=== PATIENT | male | born 1955 | race Caucasian/White ===

== ENCOUNTER 2017-08-21 00:21 | Emergency (ER) | payer OTHER ==
[~2017-08-21] VITALS: Ht 180.3 cm; Wt 89.4 kg
[~2017-08-21 00:21] MED LIST: CYCL10 PO; HYDACE5; HYDACE5 PO; IBUP200; IBUP800 PO; RANI150 PO
[2017-08-21] MEDS ORDERED: LISI20 PO (00:41)
[2017-08-21 00:51] LABS: BASOPHILS ABSOLUTE AUTO 0.13 K/mm3 (0.00-0.23); BASOPHILS PERCENT AUTO 1 % (0-2); EOSINOPHILS ABSOLUTE AUTO 0.24 K/mm3 (0.00-0.68); EOSINOPHILS PERCENT AUTO 1 % (0-6); Hematocrit 45.3 % (37.0-53.0); Hemoglobin 15.4 g/dL (13.5-17.5); IMMATURE GRAN ABSOLUTE AUTO 0.08 K/mm3 (0.00-0.10); IMMATURE GRAN PERCENT AUTO 0 % (0-1); LYMPHOCYTES ABSOLUTE AUTO 2.93 K/mm3 (0.84-5.20); LYMPHOCYTES PERCENT AUTO 16 % (21-46); MONOCYTES ABSOLUTE AUTO 1.28 K/mm3 (0.16-1.47); MONOCYTES PERCENT AUTO 7 % (4-13); Mean Corpuscular HGB 30.3 pg (26.0-34.0); Mean Corpuscular Volume 89 fL (80-100); Mean Platelet Volume 9.9 fL (9.1-12.4); NEUTROPHILS ABSOLUTE AUTO 13.25 K/mm3 (1.96-9.15); NEUTROPHILS PERCENT AUTO 74 % (41-73); Platelet Count 276 K/mm3 (150-400); RDW Coefficient Variation 13.5 % (11.7-14.2); RDW Standard Deviation 44.4 fL (35.1-46.3); Red Blood Cell Count 5.09 M/mm3 (4.30-5.90); White Blood Cell Count 17.91 K/mm3 (4.00-11.30)
[2017-08-21 01:03] LABS: Alanine Aminotransfer (ALT/SGP 37 U/L (12-78); Albumin, Blood 4.1 g/dL (3.4-5.0); Albumin/Globulin Ratio 1.2 (0.8-1.8); Alk Phos 97 U/L (50-136); Anion Gap 8 mmol/L (6-16); Aspartate Aminotrans (AST/SGOT 23 U/L (12-37); Bilirubin, Total 0.5 mg/dL (0.1-1.0); Blood Urea Nitrogen 14 mg/dL (8-24); Bun/Creatinine Ratio 15.2 (12.0-20.0); CO2, Blood 26 mmol/L (21-32); Calcium, Blood 9.2 mg/dL (8.5-10.1); Chloride, Blood 107 mmol/L (98-108); Creatinine, Blood 0.92 mg/dL (0.60-1.20); Globulin, Blood 3.3 g/dL (2.2-4.0); Glomerular Filtration Rate >60 (60-); Glucose, Blood 115 mg/dL (70-99); Potassium, Blood 3.7 mmol/L (3.5-5.5); Sodium, Blood 141 mmol/L (136-145); Total Protein, Blood 7.4 g/dL (6.4-8.2)
[2017-08-21 01:04] LABS: Source, Urine Clean Catch
[2017-08-21 01:09] LABS: Bilirubin, Urine Neg (Neg); Blood, Urine 5+ (Neg); Glucose Qualitative, Urine Neg (Neg); Ketones, Urine Neg (Neg); Leukocyte Esterase, Urine Neg (Neg); Nitrite, Urine Neg (Neg); Protein, Urine Neg (Neg); Urobilinogen, Urine NORM (Normal)
[2017-08-21 01:14] LABS: Appearance, Urine Clear (Clear); Color, Urine Yellow (P-Yellow)
[2017-08-21 01:15] LABS: White Blood Cells, Urine Not Seen /hpf (0-5)
[2017-08-21 01:16] LABS: Bacteria Not Seen /hpf; Mucus Light (0-Heavy); Red Blood Cells, Urine 50-100 /hpf (0-2); Squamous Epithelial Cells Not Seen /hpf (Few)
[2017-08-21] MEDS ORDERED: Flomax0.4 MG PO (03:22)
[2017-08-21] MEDS ORDERED: IBUP600 PO (03:22)
[2017-08-21] MEDS ORDERED: Norco 5-325 Ta1 EACH PO (03:22)
[2017-08-21] MEDS ORDERED: Zofran Odt4 MG PO (03:22)
== END 2017-08-21 03:43 | disposition home or self-care (01) ==
LOC: ER 00:21
PROVIDERS: Emergency Medicine
DX: N13.2 Hydronephrosis with renal and ureteral calculous obstruction (principal); Z79.899 Other long term (current) drug therapy; I10 Essential (primary) hypertension; F17.210 Nicotine dependence, cigarettes, uncomplicated
CPT/HCPCS: 74176; 80053; 81001; 83690; 85025; 93005; 93010; 96361; 96374; 96375; 99284; J1885; J2405; J3010; J7030

== ENCOUNTER 2018-07-16 06:50 | Day surgery (SDC) | payer OTHER, MEDICARE ==
[~2018-07-16] VITALS: Ht 180.3 cm; Wt 95.3 kg
[~2018-07-16 06:50] MED LIST changes: +Flomax0.4 MG PO; +IBUP600 PO; +LISI20 PO; +Norco 5-325 Ta1 EACH PO; +Ultram50 MG PO; +Zofran Odt4 MG PO
--- NOTE | 2018-07-16 07:52 | NUR ---
PATIENT PERMISSION PATIENT GAVE PERMISSION FOR ME TO CARE FOR HIM TODAY 07/16/18
--- NOTE | 2018-07-16 08:15 | NUR ---
STUDENT NURSE ASSISTING IN CARE. AGREE WITH HER CHARTING AND CARE.
--- NOTE | 2018-07-16 08:16 | NUR ---
History, Chart, Medications and Allergies reviewed before start of procedure.Patient confirms NPO status and agrees with scheduled surgery. Patient reports completing Chlorhexadine shower X2 prior to admission to hospital.Surgical site prepped with 2% Chlorhexidine cloth wipe.PATIENT STATES CHRONIC PAIN 5/10 TO BACK
--- NOTE | 2018-07-16 09:37 | NUR ---
IV OUT,2X2 COBAN TO RT.FORE CATH INTACT
--- NOTE | 2018-07-16 10:46 | NUR ---
Patient up to Ambulate independently. Gait steady. Discharge instructions reviewed with patient. Patient verbalizes understanding. Copy given to patient to take home. Patient States Post-Procedure ride home has been arranged. Discharged via wheelchair to private car for ride home.
== END 2018-07-16 23:18 | disposition home or self-care (01) ==
LOC: ORSCMMR 06:50 → ORD 07:30 → ORSCMMR 08:00 → ORD 08:15 → ORSCMMR 23:18
PROVIDERS: Surgery
PROC: BF031ZZ Plain Radiography of Gallbladder and Bile Ducts using Low Osmolar Contrast (ICD-10-PCS; principal; 2018-07-16 08:00)
PROC: 0FT44ZZ Resection of Gallbladder, Percutaneous Endoscopic Approach (ICD-10-PCS; principal; 2018-07-16 08:00)
DX: K80.11 Calculus of gallbladder with chronic cholecystitis with obstruction (principal); K82.8 Other specified diseases of gallbladder; J44.9 Chronic obstructive pulmonary disease, unspecified; I10 Essential (primary) hypertension; F17.210 Nicotine dependence, cigarettes, uncomplicated; Z79.899 Other long term (current) drug therapy
CPT/HCPCS: 74300; 88304; C1729; J0690; J1100; J1885; J2405; J2704; J3010; J7030; J7120

== ENCOUNTER 2019-02-22 23:42 | Emergency (ER) | payer MEDICARE ==
[~2019-02-22] VITALS: Ht 180.3 cm; Wt 90.3 kg
[2019-02-23 00:19] LABS: BASOPHILS ABSOLUTE AUTO 0.16 K/mm3 (0.00-0.23); BASOPHILS PERCENT AUTO 1 % (0-2); EOSINOPHILS ABSOLUTE AUTO 0.19 K/mm3 (0.00-0.68); EOSINOPHILS PERCENT AUTO 1 % (0-6); Hematocrit 46.9 % (37.0-53.0); IMMATURE GRAN ABSOLUTE AUTO 0.07 K/mm3 (0.00-0.10); IMMATURE GRAN PERCENT AUTO 0 % (0-1); LYMPHOCYTES PERCENT AUTO 11 % (21-46); MONOCYTES ABSOLUTE AUTO 1.19 K/mm3 (0.16-1.47); MONOCYTES PERCENT AUTO 7 % (4-13); Mean Corpuscular HGB 29.2 pg (26.0-34.0); Mean Corpuscular HGB Conc 34.1 g/dL (31.5-36.5); Mean Corpuscular Volume 86 fL (80-100); Mean Platelet Volume 9.8 fL (9.1-12.4); NEUTROPHILS ABSOLUTE AUTO 13.06 K/mm3 (1.96-9.15); NEUTROPHILS PERCENT AUTO 79 % (41-73); Platelet Count 271 K/mm3 (150-400); RDW Coefficient Variation 12.9 % (11.7-14.2); RDW Standard Deviation 40.2 fL (35.1-46.3); Red Blood Cell Count 5.48 M/mm3 (4.30-5.90); White Blood Cell Count 16.47 K/mm3 (4.00-11.30)
[2019-02-23 00:34] LABS: Magnesium, Blood 2.1 mg/dL (1.6-2.4)
[2019-02-23 00:38] LABS: Alanine Aminotransfer (ALT/SGP 28 U/L (12-78); Albumin, Blood 4.2 g/dL (3.4-5.0); Albumin/Globulin Ratio 1.2 (0.8-1.8); Alk Phos 147 U/L (50-136); Anion Gap 6 mmol/L (6-16); Aspartate Aminotrans (AST/SGOT 23 U/L (12-37); Bilirubin, Total 0.4 mg/dL (0.1-1.0); Blood Urea Nitrogen 10 mg/dL (8-24); Bun/Creatinine Ratio 10.8 (12.0-20.0); CO2, Blood 26 mmol/L (21-32); Chloride, Blood 105 mmol/L (98-108); Creatinine, Blood 0.92 mg/dL (0.60-1.20); Globulin, Blood 3.4 g/dL (2.2-4.0); Glomerular Filtration Rate >60 (60-); Glucose, Blood 189 mg/dL (70-99); Potassium, Blood 3.7 mmol/L (3.5-5.5); Sodium, Blood 137 mmol/L (136-145); Total Protein, Blood 7.6 g/dL (6.4-8.2)
[2019-02-23 01:30] LABS: Source, Urine Clean Catch
[2019-02-23 01:32] LABS: Bilirubin, Urine Neg (Neg); Blood, Urine 2+ (Neg); Glucose Qualitative, Urine 2+ (Neg); Ketones, Urine Neg (Neg); Leukocyte Esterase, Urine Neg (Neg); Nitrite, Urine Neg (Neg); Protein, Urine Neg (Neg); Urobilinogen, Urine NORM (Normal)
[2019-02-23 01:36] LABS: Appearance, Urine Clear (Clear); Color, Urine Yellow (P-Yellow)
[2019-02-23 01:38] LABS: Bacteria Not Seen /hpf; Squamous Epithelial Cells Rare /hpf (Few); White Blood Cells, Urine Not Seen /hpf (0-5); Yeast/Fungi Urine Not Seen /hpf
[2019-02-23] MEDS ORDERED: Percocet 5-3251 EACH PO (02:23)
== END 2019-02-23 02:36 | disposition home or self-care (01) ==
LOC: ER 23:42
PROVIDERS: Emergency Medicine; Physician Assistant
DX: N13.2 Hydronephrosis with renal and ureteral calculous obstruction (principal); I10 Essential (primary) hypertension; F17.210 Nicotine dependence, cigarettes, uncomplicated; Z87.442 Personal history of urinary calculi
CPT/HCPCS: 36415; 74176; 80053; 81001; 83605; 83690; 83735; 84145; 85025; 96361; 96374; 96375; 99284; J1170; J1885; J7030

== ENCOUNTER 2020-08-30 19:57 | Inpatient (IN) | payer OTHER, MEDICARE ==
[~2020-08-30] VITALS: Ht 180.3 cm; Wt 98.2 kg
[~2020-08-30 19:57] MED LIST changes: +Percocet 5-3251 EACH PO
[2020-08-30 20:17] LABS: BASOPHILS ABSOLUTE AUTO 0.14 K/mm3 (0.00-0.23); BASOPHILS PERCENT AUTO 1 % (0-2); EOSINOPHILS ABSOLUTE AUTO 0.22 K/mm3 (0.00-0.68); EOSINOPHILS PERCENT AUTO 1 % (0-6); Hematocrit 44.9 % (37.0-53.0); Hemoglobin 15.5 g/dL (13.5-17.5); IMMATURE GRAN ABSOLUTE AUTO 0.16 K/mm3 (0.00-0.10); IMMATURE GRAN PERCENT AUTO 1 % (0-1); LYMPHOCYTES ABSOLUTE AUTO 5.03 K/mm3 (0.84-5.20); LYMPHOCYTES PERCENT AUTO 29 % (21-46); MONOCYTES PERCENT AUTO 8 % (4-13); Mean Corpuscular HGB 29.4 pg (26.0-34.0); Mean Corpuscular HGB Conc 34.5 g/dL (31.5-36.5); Mean Corpuscular Volume 85 fL (80-100); Mean Platelet Volume 10.5 fL (9.1-12.4); NEUTROPHILS ABSOLUTE AUTO 10.51 K/mm3 (1.96-9.15); NEUTROPHILS PERCENT AUTO 60 % (41-73); Platelet Count 263 K/mm3 (150-400); RDW Coefficient Variation 13.4 % (11.7-14.2); RDW Standard Deviation 41.6 fL (35.1-46.3); Red Blood Cell Count 5.27 M/mm3 (4.30-5.90); White Blood Cell Count 17.46 K/mm3 (4.00-11.30)
[2020-08-30 20:37] LABS: Alanine Aminotransfer (ALT/SGP 36 U/L (12-78); Albumin, Blood 4.1 g/dL (3.4-5.0); Albumin/Globulin Ratio 1.3 (0.8-1.8); Alk Phos 120 U/L (50-136); Anion Gap 7 mmol/L (6-16); Aspartate Aminotrans (AST/SGOT 28 U/L (12-37); Bilirubin, Total 0.5 mg/dL (0.1-1.0); Blood Urea Nitrogen 15 mg/dL (8-24); CO2, Blood 24 mmol/L (21-32); Calcium, Blood 8.9 mg/dL (8.5-10.1); Chloride, Blood 109 mmol/L (98-108); Creatinine, Blood 0.94 mg/dL (0.60-1.20); Globulin, Blood 3.1 g/dL (2.2-4.0); Glomerular Filtration Rate >60 (60-); Glucose, Blood 159 mg/dL (70-99); Potassium, Blood 3.3 mmol/L (3.5-5.5); Sodium, Blood 140 mmol/L (136-145); Total Protein, Blood 7.2 g/dL (6.4-8.2)
[2020-08-31] MEDS ORDERED: FLOMAX0.4 MG PO (01:11)
[2020-08-31 01:41] LABS: SARS-Cov-2 (COVID-19) PCR, MMC NEGATIVE (NEGATIVE)
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
--- NOTE | 2020-08-31 17:36 | NUR ---
SUMMARY: NO ACUTE CHANGE TODAY. PT DROWSY, AWAKENS TO VOICE. ORIENTED. HTN NOTED AND DR. JOHNSON/ LAK[place] MADE AWARE. SEE NEW ORDER, VS OTHERWISE STABLE. PT HAS SLEPT MAJORITY OF THE DAY, USED BATHROOM X2 WITH SBA. PAINFUL WITH MOVEMENT, MEDICATED PER EMAR. L ELBOW LACERATION WRAPPED IN GAUZE AND RIDDHI WNL, ELEVATED ON PILLOWS. PT SWELLING AT L EYE SEEMS TO HAVE IMPROVED TONIGHT AND PT ABLE TO OPEN EYE. PLAN IS FOR I & D OF L ELBOW TOMORROW, NPO AT OO. WILL REPORT TO NOC JEB.
--- NOTE | 2020-09-01 03:57 | NUR ---
PATIENT DROWSY, ORIENTED X4. BP SYSTOLIC AT 184, PRN HYDRALAZINE GIVEN W/ GOOD EFFECT. OTHER VSS. PAIN MANAGED WELL W/ IV DILAUDID. UP TO TOILET W/ SBA. NPO. LR INFUSING. SLEEPING B/W CARE. USING CALL LIGHT TO MAKE NEEDS KNOWN.
[2020-09-01 04:50] LABS: BASOPHILS PERCENT AUTO 1 % (0-2); EOSINOPHILS ABSOLUTE AUTO 0.11 K/mm3 (0.00-0.68); EOSINOPHILS PERCENT AUTO 1 % (0-6); Hematocrit 43.7 % (37.0-53.0); Hemoglobin 14.7 g/dL (13.5-17.5); IMMATURE GRAN ABSOLUTE AUTO 0.09 K/mm3 (0.00-0.10); IMMATURE GRAN PERCENT AUTO 1 % (0-1); LYMPHOCYTES ABSOLUTE AUTO 2.45 K/mm3 (0.84-5.20); LYMPHOCYTES PERCENT AUTO 15 % (21-46); MONOCYTES ABSOLUTE AUTO 1.78 K/mm3 (0.16-1.47); MONOCYTES PERCENT AUTO 11 % (4-13); Mean Corpuscular HGB 28.9 pg (26.0-34.0); Mean Corpuscular HGB Conc 33.6 g/dL (31.5-36.5); Mean Corpuscular Volume 86 fL (80-100); NEUTROPHILS ABSOLUTE AUTO 11.67 K/mm3 (1.96-9.15); NEUTROPHILS PERCENT AUTO 72 % (41-73); Platelet Count 223 K/mm3 (150-400); RDW Coefficient Variation 13.5 % (11.7-14.2); RDW Standard Deviation 42.3 fL (35.1-46.3); Red Blood Cell Count 5.09 M/mm3 (4.30-5.90)
[2020-09-01 05:05] LABS: Albumin, Blood 3.8 g/dL (3.4-5.0); Anion Gap 8 mmol/L (6-16); Blood Urea Nitrogen 15 mg/dL (8-24); Bun/Creatinine Ratio 20.2 (12.0-20.0); CO2, Blood 24 mmol/L (21-32); Calcium, Blood 8.5 mg/dL (8.5-10.1); Chloride, Blood 103 mmol/L (98-108); Creatinine, Blood 0.74 mg/dL (0.60-1.20); Glomerular Filtration Rate >60 (60-); Glucose, Blood 154 mg/dL (70-99); Phosphorus, Blood 2.2 mg/dL (2.5-4.9); Potassium, Blood 3.7 mmol/L (3.5-5.5); Sodium, Blood 135 mmol/L (136-145)
--- NOTE | 2020-09-01 14:17 | NUR ---
History, Chart, Medications and Allergies reviewed before start of procedure.Patient confirms NPO status and agrees with scheduled surgery. Pre-Op teaching done. Pt verbalizes understanding.
--- NOTE | 2020-09-01 14:49 | NUR ---
PT TO OR AT ABOUT 1420, PT AWARE
--- NOTE | 2020-09-01 18:39 | NUR ---
POST OP: REPORT RECEIVED FROM SHEET METAL WORKER MAINTENANCE KIM. PT TO UNIT AT ABOUT 1800. UPON ASSESSMENT PT IS DROWSY, AWAKENS TO VOICE AND IS A LITTLE FORGETFUL, PT NEEDED A REMINDER OF WHERE HE WAS. BED ALARM ON. SURGICAL SITE WNL, PT DENIES N/T TO L ARM, ARM IS IN SLING AND WRAPED WITH RIDDHI. VSS, SP02 94% ON 2L, CONT. BI OX IN PLACE, LUNGS ARE CLEAR AND DIM AT BASES. PT DENIES N/V AND ABLE TO RAMONA PO. PT REPORTS 4/10 PAIN THAT IS TOLERABLE AT THIS TIME. WILL CTM AND REPORT TO NOC JEB.
--- NOTE | 2020-09-01 21:08 | NUR ---
PAIN MEDS: PT REQUESTING TO AVOID NORCO. PT REPORTS WAS TAKING NORCO DAILY FOR THE PAST 8 YEARS AND RECENTLY STOPPED TAKING IT. PT REQ TO HAVE IV DILAUDID WHILE IN HOSPITAL. PT EDUCATED THAT DILAUDID IS ALSO A NARCOTIC, ALSO DISCUSSED PAIN MGMT UPON DC. PT VERBALIZED UNDERSTANDING, STATES "I KNOW, FOR ME IT'S A MIND OVER MATTER THING, I KNOW I WON'T BE TAKING THE DILAUDID AT HOME" "I WILL TRY TO TAKE THE NORCO ONLY 1X A DAY WHEN I'M HOME; I DON'T WANT TO GET STARTED BACK ON THAT STUFF" PT REQ IV TORADOL AND TO LIMIT NARCOTICS IF POSSIBLE W/NORCO BEING HIS LAST RESORT WHILE HERE.
--- NOTE | 2020-09-02 04:23 | NUR ---
PT ALERT AND ORIENTED. UP TO RESTROOM WITH ASSISTANCE. NO BM. COUGHING WITH PILLOW FOR GUARDING. MEDICATED WITH DILAUDID AND TORADOL, TOLERATES WELL. L HAND SWELLING, ABLE TO MOVE FINGERS. PULSE IS STRONG. ON 1L O2. FLUIDS INFUSING.
--- NOTE | 2020-09-02 06:14 | NUR ---
POD 1 S/P I&D OF LEFT ELBOW. PT VSS, O2 TITRATED DOWN TO 1L THIS AM. LUNGS DIM, PT HAS OCC LOOSE COUGH, IS BRACING RIBS W/COUGH; I/S USE REINFORCED. LUE DRESSING CDI; SPLINT IN PLACE, ARM ELEVATED IN BED. NO SIG CHANGE TO SWELLING, PULSE AND CAP REFILL WNL, PT DENIES N/T. PT REQ TO AVOID NORCO R/T HX OF NAROTIC USE (SEE PREV NOTE), PAIN MGD W/TORADOL AND DILAUDID W/REP RELIEF. PT UP OOB W/SBA, RAMONA WELL. PT USING CALL LIGHT FOR ASSISTANCE, CONT OX IN PLACE.
--- NOTE | 2020-09-02 07:52 | NUR ---
dr thomas by to see pt dressing changed ok to discharge home
--- NOTE | 2020-09-02 09:57 | NUR ---
rx called to hold[facility] c[facility]
--- NOTE | 2020-09-02 10:14 | NUR ---
at bedside awaiting dr pereyra for discharge pt sitting up on dege of the bed
[2020-09-02] MEDS ORDERED: CEPH500 PO (10:15)
[2020-09-02] MEDS ORDERED: HYDR1TAB94 PO (10:27)
[2020-09-02] MEDS ORDERED: SULTRIDS PO (10:28)
== END 2020-09-02 11:00 | disposition home or self-care (01) | DRG 511 ==
LOC: ER 19:57 → SURS 19:58 → ER 19:58 → SURS 19:58
PROVIDERS: Emergency Medicine; Orthopaedic Surgery; Surgery; ADMIT Surgery
PROC: 0CQ1XZZ Repair Lower Lip, External Approach (ICD-10-PCS; 2020-08-30)
PROC: 0CQ1XZZ Repair Lower Lip, External Approach (ICD-10-PCS; 2020-08-30)
PROC: 09QKXZZ Repair Nasal Mucosa and Soft Tissue, External Approach (ICD-10-PCS; 2020-08-30)
PROC: 0HQEXZZ Repair Left Lower Arm Skin, External Approach (ICD-10-PCS; 2020-08-30)
PROC: 0PBL0ZZ Excision of Left Ulna, Open Approach (ICD-10-PCS; principal; 2020-09-01 14:45)
DX: S52.022B Displaced fracture of olecranon process without intraarticular extension of left ulna, initial encounter for open fracture type I or II (principal); S22.41XA Multiple fractures of ribs, right side, initial encounter for closed fracture; I10 Essential (primary) hypertension; F17.210 Nicotine dependence, cigarettes, uncomplicated; S01.21XA Laceration without foreign body of nose, initial encounter; S01.412A Laceration without foreign body of left cheek and temporomandibular area, initial encounter; Z20.822 Contact with and (suspected) exposure to COVID-19; G89.29 Other chronic pain; M54.9 Dorsalgia, unspecified; E87.6 Hypokalemia; F43.0 Acute stress reaction; S05.02XA Injury of conjunctiva and corneal abrasion without foreign body, left eye, initial encounter; S01.511A Laceration without foreign body of lip, initial encounter; S01.81XA Laceration without foreign body of other part of head, initial encounter; Z87.442 Personal history of urinary calculi; Z90.49 Acquired absence of other specified parts of digestive tract; V86.59XA Driver of other special all-terrain or other off-road motor vehicle injured in nontraffic accident, initial encounter; Z98.890 Other specified postprocedural states; Y92.410 Unspecified street and highway as the place of occurrence of the external cause
CPT/HCPCS: 12002; 12013; 36415; 70450; 71045; 71260; 72125; 73060; 73080; 73090; 73130; 73200; 73562-RT; 74177; 80053; 80069; 83735; 84484; 85025; 90471; 90670; 90714; 93005; 93010; 94762; 96365-59; 96375-59; 96376-59; 97161; 97530; 99285-25; A9270; G0009; G0378; J0330; J0360; J0690; J0696; J1170; J1885; J2250; J2270; J2405; J3010; J7120; Q9967; U0004

== ENCOUNTER 2023-01-21 23:27 | Observation (INO) | payer BC ==
[~2023-01-21] VITALS: Ht 180.3 cm; Wt 77.9 kg
[~2023-01-21 23:27] MED LIST changes: +CEPH500 PO; +FLOMAX0.4 MG PO; +HYDR1TAB94 PO; +SULTRIDS PO
[2023-01-22] VITALS (29 sets, daily range): BP systolic 98–182; BP diastolic 59–114
[2023-01-22 00:07] LABS: BASOPHILS ABSOLUTE AUTO 0.14 K/mm3 (0.00-0.23); BASOPHILS PERCENT AUTO 1 % (0-2); EOSINOPHILS ABSOLUTE AUTO 0.28 K/mm3 (0.00-0.68); EOSINOPHILS PERCENT AUTO 2 % (0-6); Hematocrit 45.3 % (37.0-53.0); Hemoglobin 16.3 g/dL (13.5-17.5); IMMATURE GRAN ABSOLUTE AUTO 0.07 K/mm3 (0.00-0.10); IMMATURE GRAN PERCENT AUTO 0 % (0-1); LYMPHOCYTES ABSOLUTE AUTO 3.36 K/mm3 (0.84-5.20); LYMPHOCYTES PERCENT AUTO 20 % (21-46); MONOCYTES ABSOLUTE AUTO 1.32 K/mm3 (0.16-1.47); MONOCYTES PERCENT AUTO 8 % (4-13); Mean Corpuscular HGB 29.5 pg (26.0-34.0); Mean Corpuscular Volume 82 fL (80-100); NEUTROPHILS ABSOLUTE AUTO 11.45 K/mm3 (1.96-9.15); NEUTROPHILS PERCENT AUTO 69 % (41-73); Platelet Count 329 K/mm3 (150-400); RDW Coefficient Variation 12.1 % (11.7-14.2); RDW Standard Deviation 36.5 fL (35.1-46.3); Red Blood Cell Count 5.52 M/mm3 (4.30-5.90); White Blood Cell Count 16.62 K/mm3 (4.00-11.30)
[2023-01-22 01:08] LABS: Albumin, Blood 3.8 g/dL (3.4-5.0); Bilirubin, Total 0.4 mg/dL (0.1-1.0); Bun/Creatinine Ratio 18.6 (12.0-20.0); Calcium, Blood 9.5 mg/dL (8.5-10.1); Creatinine, Blood 0.7 mg/dL (0.60-1.20); Globulin, Blood 3.8 g/dL (2.2-4.0); Total Protein, Blood 7.6 g/dL (6.4-8.2)
[2023-01-22] MEDS ORDERED: TAMS.4ER PO (01:33)
--- NOTE | 2023-01-22 04:06 | NUR ---
ER ADMIT TO ICU 14: PT ARRIVED TO THE UNIT FROM LUNCHROOM MONITOR AT 0100; PT ADMITTED TO THE UNIT STATUS POST LUNCHROOM MONITOR SECONDARY TO A STEMI WITH TWO STENTS PLACED IN THE PROXIMAL LAD AND RCA. R. RADIAL ACCESS SITE WITH TR BAND IN PLACE; SITE IS WITHOUT BLEEDING OR HEMATOMA, PT DENIES PAIN AT SITE. PT EDUCATED REGARDING IMPORTANCE TO KEEP R. WRIST STRAIGHT AND NOT TO BEAR WEIGHT OR BEND WRIST. PT PLEASANTLY A&O X 4 UPON ARRIAL. PT ON RA WITH SPO2 96M< AND DENIES SOB AT THIS TIME. PT SR ON MONITOR UPON ARRIVAL WITH HR 70-80'S AND SBP 130-140'S; PT DENIES CHEST PAIN/PRESSURE AT THIS TIME, CONTINUOUS CAT SITTER IN PLACE. HYPOACTIVE BOWEL SOUNDS IN ALL QUADRANTS; ABD SOFT, NON-TENDER AND PT TOLERATING PO INTAKE. PT USING URINAL AT BEDSIDE; URINE CLEAR, YELLOW. SKIN OVERALL INTACT, COOL; WARM BLANKETS APPLIED. PT MOVING IN BED INDEPENDENTLY. PT COMMUNICATES NEEDS APPROPRIATELY; BED LOWERED, CALL LIGHT IN REACH.
[2023-01-22 05:52] LABS: Anion Gap 6 mmol/L (6-16); Blood Urea Nitrogen 12 mg/dL (8-24); Bun/Creatinine Ratio 19.3 (12.0-20.0); CHOL/HDL RATIO 3.7; CO2, Blood 24 mmol/L (21-32); Calcium, Blood 8.7 mg/dL (8.5-10.1); Chloride, Blood 103 mmol/L (98-108); Cholesterol 159 mg/dL (50-200); Creatinine, Blood 0.62 mg/dL (0.60-1.20); Glomerular Filtration Rate 106 (60-); Glucose, Blood 378 mg/dL (70-99); HDL Cholesterol 43 mg/dL (>39); Low Density Lipoprotein Chol 86 mg/dL (0-110); Potassium, Blood 3.7 mmol/L (3.5-5.5); Sodium, Blood 133 mmol/L (136-145); Triglycerides 149 mg/dL (30-160); Very Low Density Lipoprot Chol 29 mg/dL (6-32)
--- NOTE | 2023-01-22 06:21 | NUR ---
SHIFT SUMMARY: PT STARTED TO BECOME HYPERTENSIVE AROUND 0445 WITH SBP 170<; DR CUTLER NOTIFIED AND VERBAL ORDERS TO GIVE 0900 HTN MEDS EARLY AND NEW ORDERS PLACED FOR PRN HYDRALAZINE. PT CONTINUES TO DENY CHEST PAIN/PRESSURE AT THIS TIME AND HAS BEEN SLEEPING SOUNDLY AFTER SETTLED IN UNIT. TR BAND DEFLATED COMPLETED AT 0545; DEFLATED TR BAND REMAINS IN PLACE X 1HR PER ORDERS. PT USING URINAL AT BEDSIDE INDEPENDENTLY. PT COMMUNICATES NEEDS APPROPRIATELY. BED LOWERED, CALL LIGHT IN REACH, WILL REPORT OFF TO ONCOMING RN.
--- NOTE | 2023-01-22 07:43 | NUR ---
SHIFT ASSESSMENT ASSUMED CARE OF PT @ 0700. BEDSIDE REPORT RECEIVED FROM YUMI RUSS. PT AWAKENS EASILY TO VERBAL STIMULI, A&OX4, FOLLOWING COMMANDS, GIBBS. DENIES CP/ SOB AT THIS TIME, STATES FEELS MUCH BETTER THAN YESTERDAY. TR BAND TO R RADIAL ARTERY REPLACED WITH TEGADERM, NO BLEEDING OR HEMATOMA, STRONG PULSE, WRIST IMMOBILIZATION BOARD BACK IN PLACE. AWAITING ECHO THIS AM. VSS.
--- NOTE | 2023-01-22 11:52 | NUR ---
Echocardiogram using 0.50ml of Definity contrast performed.
--- NOTE | 2023-01-22 18:07 | NUR ---
REPORT GIVEN TO DAVID RN, PT TAKEN TO ROOM 339.
--- NOTE | 2023-01-22 18:19 | NUR ---
TRANSFER FROM ICU PATIENT TRANSFERED FROM ICU POST STENT PLACEMENT FOR STEMI. PATIENT ALERT, INTERACTIVE AND INDEPENDENT IN THE ROOM. PATIENT OUT WALKING HALLS WHILE IN ICU. PATIENT DENIES ANY PAIN OR SOB. EDUCATION GIVEN TO NOTIFY STAFF IF HAS ANY CHEST PAIN OR SOB. EDUCATION PROVIDED ABOUT DIABETES.
[2023-01-23 05:00] VITALS: BP 121/81
--- NOTE | 2023-01-23 06:33 | NUR ---
NOC SHIFT SUMMARY PT ORIENTED X4, TALKATIVE. VSS PER PT TREND. DENIES PAIN OR DISCOMFORT. R RADIAL SITE CDI WITH TEGADERM. PT STARTED LONG ACTING INSULIN THIS SHIFT, EDUCATED ON USE AND ENCOURAGED PARTICIPATION IN ADMINISTERING. EDUCATED ON ADMINISTRATION, PT TO GIVE NEXT DOSE TO HIMSELF. SR ON TELEMETRY. PLAN FOR POSSIBLE DC TODAY.
[2023-01-23 07:44] VITALS: BP 122/65
[2023-01-23] MEDS ORDERED: ASPIR 8181 M1 PO (11:27)
[2023-01-23] MEDS ORDERED: ATOR40TA PO (11:28)
[2023-01-23] MEDS ORDERED: CLOP75 PO (11:28)
[2023-01-23] MEDS ORDERED: INSULIN GL100 UNIT/4 SC (11:30)
[2023-01-23] MEDS ORDERED: HUMALOG KW100 UNIT/1 SC (11:31)
[2023-01-23] MEDS ORDERED: LABE100 PO (11:32)
[2023-01-23] MEDS ORDERED: Prinivil10 MG PO (11:32)
[2023-01-23] MEDS ORDERED: NICODERM CQ1 EA11 TOP (11:32)
--- NOTE | 2023-01-23 14:53 | NUR ---
SHIFT SUMMARY AND DISCHARGE PATIENT DISCHARGED HOME WITH HOME HEALTH TO FOLLOW UP. PATIENT AMBULATORY AND INDEPENDENT IN THE HALLS. PATIENT POST OP PERIPHERAL STENTING AND NEW DIAGNOSIS OF DIABETES. R WRIST SITE WNL. EDUCATION PROVIDED RELATED TO SITE CARE AND DRESSINGS. DIABETIC TEACHING PROVIDED BY BRAND STRATEGIST. PATIENT EDUCATED ON INSULIN DOSING AND INJECTING. PATIENT GAVE INJECTION OF INSULIN BEFORE DISCHARGE. PATIENT BELONGINGS RETURNED TO PATIENT. ROOM CHECK DONE WITH PATIENT AND PATIENT AMBULATED OUT WITH FINISHED CIGAR MAKER PRESENT
== END 2023-01-23 12:47 | disposition home or self-care (01) ==
LOC: ER 23:27 → ICUE 23:28 → ER 01-22 00:05 → ICUE 01-22 00:28 → MEDS 01-22 00:28 → ER 01-22 00:28 → ICUE 01-22 00:45 → MEDS 01-22 18:00 → ICUE 01-22 18:00 → ENPENDDIS 01-23 10:55 → MEDS 01-23 12:47
PROVIDERS: Student in an Organized Health Care Education/Training Program; ADMIT Internal Medicine Interventional Cardiology
DX: I21.09 ST elevation (STEMI) myocardial infarction involving other coronary artery of anterior wall (principal); I10 Essential (primary) hypertension; E11.65 Type 2 diabetes mellitus with hyperglycemia; J44.9 Chronic obstructive pulmonary disease, unspecified; N40.0 Benign prostatic hyperplasia without lower urinary tract symptoms; F17.210 Nicotine dependence, cigarettes, uncomplicated; I25.118 Atherosclerotic heart disease of native coronary artery with other forms of angina pectoris
CPT/HCPCS: 36415; 76937; 80048; 80053; 80061; 82947; 83036; 84484; 85025; 85347; 93005; 93010; 93458; 96372; 96374; 99152; 99153; 99285-25; A9270; C1725; C1769; C1874; C1887; C1894; C8929; C9601; C9606; G0378; J1644; J1815; J2250; J3010; J3246; J7030; J7050; Q9957; Q9967

== ENCOUNTER 2023-11-10 00:10 | Emergency (ER) | payer OTHER, MEDICARE ==
[~2023-11-10] VITALS: Ht 180.3 cm; Wt 81.7 kg
[~2023-11-10 00:10] MED LIST changes: +ASPIR 8181 M1 PO; +ATOR40TA PO; +CLOP75 PO; +HUMALOG KW100 UNIT/1 SC; +INSULIN GL100 UNIT/4 SC; +LABE100 PO; +NICODERM CQ1 EA11 TOP; +Prinivil10 MG PO; +TAMS.4ER PO
[2023-11-10] MEDS ORDERED: Ketorolac Tromethamine 30mg Vial IV ONE (05:00)
[2023-11-10] MEDS ORDERED: Morphine Sulfate 4 MG/1 ML Injection IV ONE (05:00)
[2023-11-10] MEDS ORDERED: FentaNYL Citrate 50 MCG/ML 2 ML Injection IV ONE (05:00)
[2023-11-10] MEDS ORDERED: Roxicodone5 MG PO (07:19)
[2023-11-10 08:30] VITALS: BP 149/75
== END 2023-11-10 09:14 | disposition home or self-care (01) ==
LOC: ER 00:10
DX: S92.352A Displaced fracture of fifth metatarsal bone, left foot, initial encounter for closed fracture (principal); S50.02XA Contusion of left elbow, initial encounter; S80.212A Abrasion, left knee, initial encounter; M25.572 Pain in left ankle and joints of left foot; F17.210 Nicotine dependence, cigarettes, uncomplicated; J44.9 Chronic obstructive pulmonary disease, unspecified; E11.9 Type 2 diabetes mellitus without complications; I10 Essential (primary) hypertension; I25.2 Old myocardial infarction; V23.49XA Other motorcycle driver injured in collision with car, pick-up truck or van in traffic accident, initial encounter; Z79.82 Long term (current) use of aspirin; Z79.02 Long term (current) use of antithrombotics/antiplatelets; Z79.4 Long term (current) use of insulin; Z79.899 Other long term (current) drug therapy
CPT/HCPCS: 29505; 73080; 73562-LT; 73590; 73610; 73630; 73700; 96374-59; 96375-59; 99284-25; J1885; J2270; J3010

== ENCOUNTER 2024-07-08 23:18 | Emergency (ER) | payer MEDICARE ==
[~2024-07-08] VITALS: Ht 180.3 cm; Wt 79.4 kg
[~2024-07-08 23:18] MED LIST changes: +Roxicodone5 MG PO
[2024-07-09 02:12] LABS: BASOPHILS ABSOLUTE AUTO 0.11 K/mm3 (0.00-0.23); BASOPHILS PERCENT AUTO 1 % (0-2); EOSINOPHILS PERCENT AUTO 6 % (0-6); Hematocrit 44.1 % (37.0-53.0); Hemoglobin 14.9 g/dL (13.5-17.5); IMMATURE GRAN ABSOLUTE AUTO 0.03 K/mm3 (0.00-0.10); IMMATURE GRAN PERCENT AUTO 0 % (0-1); LYMPHOCYTES ABSOLUTE AUTO 2.37 K/mm3 (0.84-5.20); LYMPHOCYTES PERCENT AUTO 24 % (21-46); MONOCYTES ABSOLUTE AUTO 0.93 K/mm3 (0.16-1.47); MONOCYTES PERCENT AUTO 9 % (4-13); Mean Corpuscular HGB 28.8 pg (26.0-34.0); Mean Corpuscular HGB Conc 33.8 g/dL (31.5-36.5); Mean Corpuscular Volume 85 fL (80-100); Mean Platelet Volume 9.9 fL (9.1-12.4); NEUTROPHILS ABSOLUTE AUTO 5.92 K/mm3 (1.96-9.15); NEUTROPHILS PERCENT AUTO 60 % (41-73); Platelet Count 219 K/mm3 (150-400); RDW Coefficient Variation 13.5 % (11.7-14.2); Red Blood Cell Count 5.18 M/mm3 (4.30-5.90); White Blood Cell Count 9.96 K/mm3 (4.00-11.30)
[2024-07-09 02:20] LABS: Albumin, Blood 3.8 g/dL (3.4-5.0); Albumin/Globulin Ratio 1.2 (0.8-1.8); Bilirubin, Total 0.5 mg/dL (0.1-1.0); Bun/Creatinine Ratio 24.7 (12.0-20.0); Calcium, Blood 8.6 mg/dL (8.5-10.1); Creatinine, Blood 0.77 mg/dL (0.60-1.20); Globulin, Blood 3.1 g/dL (2.2-4.0); Potassium, Blood 3.6 mmol/L (3.5-5.5); Total Protein, Blood 6.9 g/dL (6.4-8.2)
[2024-07-09] MEDS ORDERED: Trimethoprim/Sulfamethoxazole DS Tab PO ONE (02:50)
[2024-07-09] MEDS ORDERED: Cephalexin Monohydrate 500 MG Cap PO ONE (02:50)
[2024-07-09 03:20] VITALS: BP 139/94
[2024-07-09] MEDS ORDERED: SULTRIDS PO (03:25)
[2024-07-09] MEDS ORDERED: CEPH500 PO (03:25)
== END 2024-07-09 03:50 | disposition home or self-care (01) ==
LOC: ER 23:18
PROVIDERS: Emergency Medicine
DX: T63.331A Toxic effect of venom of brown recluse spider, accidental (unintentional), initial encounter (principal); S41.152A Open bite of left upper arm, initial encounter; S61.251A Open bite of left index finger without damage to nail, initial encounter; S61.255A Open bite of left ring finger without damage to nail, initial encounter; S61.551A Open bite of right wrist, initial encounter; I10 Essential (primary) hypertension; J44.9 Chronic obstructive pulmonary disease, unspecified; F17.210 Nicotine dependence, cigarettes, uncomplicated; E11.9 Type 2 diabetes mellitus without complications; Z79.82 Long term (current) use of aspirin; Z79.4 Long term (current) use of insulin; Z79.899 Other long term (current) drug therapy; W57.XXXA Bitten or stung by nonvenomous insect and other nonvenomous arthropods, initial encounter
CPT/HCPCS: 10060; 80053; 85025; 99283-25; A9270

== ENCOUNTER 2024-12-07 07:24 | Emergency (ER) | payer MEDICARE ==
[~2024-12-07] VITALS: Ht 180.3 cm; Wt 77.1 kg
[2024-12-07 07:37] VITALS: BP 148/92
[2024-12-07 07:46] LABS: BASOPHILS ABSOLUTE AUTO 0.11 K/mm3 (0.00-0.23); BASOPHILS PERCENT AUTO 1 % (0-2); EOSINOPHILS ABSOLUTE AUTO 0.45 K/mm3 (0.00-0.68); EOSINOPHILS PERCENT AUTO 5 % (0-6); Hematocrit 36.2 % (37.0-53.0); Hemoglobin 12.5 g/dL (13.5-17.5); IMMATURE GRAN ABSOLUTE AUTO 0.04 K/mm3 (0.00-0.10); IMMATURE GRAN PERCENT AUTO 0 % (0-1); LYMPHOCYTES ABSOLUTE AUTO 1.94 K/mm3 (0.84-5.20); LYMPHOCYTES PERCENT AUTO 20 % (21-46); MONOCYTES ABSOLUTE AUTO 0.84 K/mm3 (0.16-1.47); MONOCYTES PERCENT AUTO 9 % (4-13); Mean Corpuscular HGB Conc 34.5 g/dL (31.5-36.5); Mean Corpuscular Volume 83 fL (80-100); NEUTROPHILS ABSOLUTE AUTO 6.33 K/mm3 (1.96-9.15); NEUTROPHILS PERCENT AUTO 65 % (41-73); NRBC ABSOLUTE 0.00 K/mm3 (0.00-0.02); NRBC Auto 0.0 /100 WBC (0.0-0.2); Platelet Count 254 K/mm3 (150-400); RDW Coefficient Variation 12.9 % (11.7-14.2); RDW Standard Deviation 39.0 fL (35.1-46.3)
[2024-12-07 08:06] LABS: Alanine Aminotransfer (ALT/SGP 21.0 U/L (12-78); Albumin, Blood 3.1 g/dL (3.4-5.0); Albumin/Globulin Ratio 0.9 (0.8-1.8); Anion Gap 11.0 mmol/L (3-11); Aspartate Aminotrans (AST/SGOT 18.0 U/L (12-37); Bilirubin, Total 0.2 mg/dL (0.1-1.0); Blood Urea Nitrogen 17.0 mg/dL (8-24); CO2, Blood 22.0 mmol/L (21-32); Calcium, Blood 8.2 mg/dL (8.5-10.1); Chloride, Blood 108.0 mmol/L (98-108); Creatinine, Blood 0.79 mg/dL (0.60-1.20); Globulin, Blood 3.5 g/dL (2.2-4.0); Glucose, Blood 170.0 mg/dL (70-99); Potassium, Blood 3.4 mmol/L (3.5-5.5); Sodium, Blood 138.0 mmol/L (136-145); Total Protein, Blood 6.6 g/dL (6.4-8.2)
== END 2024-12-07 09:15 | disposition left against medical advice (07) ==
LOC: ER 07:24
PROVIDERS: Student in an Organized Health Care Education/Training Program
DX: R07.89 Other chest pain (principal); E87.1 Hypo-osmolality and hyponatremia; E83.51 Hypocalcemia; I10 Essential (primary) hypertension; I25.2 Old myocardial infarction; E11.9 Type 2 diabetes mellitus without complications; J44.9 Chronic obstructive pulmonary disease, unspecified; F17.210 Nicotine dependence, cigarettes, uncomplicated; Z95.5 Presence of coronary angioplasty implant and graft; Z53.29 Procedure and treatment not carried out because of patient's decision for other reasons; Z79.82 Long term (current) use of aspirin; Z79.02 Long term (current) use of antithrombotics/antiplatelets; Z79.4 Long term (current) use of insulin; Z79.899 Other long term (current) drug therapy
CPT/HCPCS: 71046; 80053; 83690; 84484; 85025; 93005; 93010; 99285-25